=== PATIENT | male | born 1945 | race African-American/Black ===

== ENCOUNTER 2017-03-27 15:46 | Emergency (ER) | payer MEDICARE ==
[~2017-03-27] VITALS: Ht 182.9 cm; Wt 68.0 kg
[2017-03-27 21:10] VITALS: BP 131/69
== END 2017-03-27 23:30 | disposition left against medical advice (07) ==
LOC: ER 15:46
DX: L97.529 Non-pressure chronic ulcer of other part of left foot with unspecified severity (principal)
CPT/HCPCS: 99281

== ENCOUNTER 2020-03-24 17:50 | Inpatient (IN) | payer MEDICARE ==
[~2020-03-24] VITALS: Ht 182.9 cm; Wt 54.0 kg
[2020-03-24] MEDS ORDERED: SODIUM CHLORIDE 0.9% 1,000 ML IV ONE (19:27)
[2020-03-24 19:38] LABS: CLARITY URINE CLEAR (CLEAR); COLOR URINE DARK YELLOW (YELLOW); KETONES URINE TRACE (NEGATIVE); LEUKOCYTE ESTERASE URINE TRACE (NEGATIVE); NITRITE URINE NEGATIVE (NEGATIVE); OCCULT BLOOD URINE NEGATIVE (NEGATIVE); PROTEIN URINE 1+ (NEGATIVE); SPECIFIC GRAVITY URINE 1.022 (1.005-1.030)
[2020-03-24 21:13] LABS: BASOPHILS % 0.4 % (0.0-2.0); LYMPHOCYTES % 7.8 % (20.0-50.0); MEAN CORPUSCULAR HEMOGLOBIN 30.3 pg (28.0-32.0); MEAN CORPUSCULAR VOLUME 96.5 fL (80.0-94.0); MEAN PLATELET VOLUME 7.6 fl (7.4-10.4); MONOCYTES % 7.9 % (2.0-8.0); NEUTROPHILS % 83.9 % (40.0-76.0); PLATELET 359 x1000/uL (130-400); RED BLOOD CELL COUNT 1.79 mill/uL (4.7-6.1); RED CELL DISTRIBUTION WIDTH 15.9 % (11.6-14.6)
[2020-03-24 21:15] LABS: HEMATOCRIT. 17.2 % (42.0-52.0); HEMOGLOBIN. 5.4 g/dL (14.0-18.0)
[2020-03-24 21:16] LABS: CHLORIDE 110 mEq/L (98-107)
[2020-03-24 21:24] LABS: INR 1.1; PROTHROMBIN TIME 11.4 sec (9.6-11.0)
[2020-03-24] MEDS ORDERED: CLONIDINE 0.1MG TABLET PO PRN (23:45)
[2020-03-24] MEDS ORDERED: ACETAMINOPHEN 325MG TABLET PO PRN (23:45)
[2020-03-24] MEDS ORDERED: MAGNESIUM/ALUMINUM HYDROXIDE/SIMETHICONE 30ML UDC PO PRN (23:45)
[2020-03-24] MEDS ORDERED: DOCUSATE SODIUM 100MG CAPSULE PO PRN (23:45)
[2020-03-24] MEDS ORDERED: IPRATROPIUM/ALBUTEROL 0.5-3(2.5)MG/3ML NEB NEB PRN (23:45)
[2020-03-24] MEDS ORDERED: ONDANSETRON HCL 4MG/2ML INJ IV PRN (23:45)
[2020-03-25] VITALS (12 sets, daily range): BP systolic 106–152; BP diastolic 53–81
[2020-03-25 00:11] LABS: CHLORIDE 111 mEq/L (98-107)
[2020-03-25 00:17] LABS: TOTAL IRON BINDING CAPACITY 169 ug/dL (250-450)
[2020-03-25 09:36] LABS: *AMPHETAMINES SCREEN URINE NEGATIVE (NEGATIVE); *BARBITURATES SCREEN URINE NEGATIVE (NEGATIVE); *BENZODIAZEPINES SCREEN URINE NEGATIVE (NEGATIVE); *COCAINE SCREEN URINE NEGATIVE (NEGATIVE); METHADONE URINE SCREEN NEGATIVE (NEGATIVE)
[2020-03-25 09:37] LABS: CANNABINOID URINE SCREEN NEGATIVE (NEGATIVE); OPIATES URINE SCREEN NEGATIVE (NEGATIVE); PHENCYCLIDINE URINE SCREEN NEGATIVE (NEGATIVE)
[2020-03-25] MEDS: PANTOPRAZOLE SODIUM 40 MG/VIAL IV SCH (10:05)
[2020-03-25] MEDS: SODIUM CHLORIDE 0.9% 1,000 ML IV SCH (12:38)
[2020-03-25 17:50] LABS: BASOPHILS % 0.3 % (0.0-2.0); EOSINOPHILS % 0.1 % (0.0-5.0); HEMATOCRIT. 26.6 % (42.0-52.0); HEMOGLOBIN. 8.7 g/dL (14.0-18.0); LYMPHOCYTES % 8.3 % (20.0-50.0); MEAN CORPUSCULAR HEMOGLOBIN 30.4 pg (28.0-32.0); MEAN CORPUSCULAR VOLUME 92.7 fL (80.0-94.0); MEAN PLATELET VOLUME 7.6 fl (7.4-10.4); MONOCYTES % 8.4 % (2.0-8.0); NEUTROPHILS % 82.9 % (40.0-76.0); PLATELET 314 x1000/uL (130-400); RED BLOOD CELL COUNT 2.87 mill/uL (4.7-6.1); RED CELL DISTRIBUTION WIDTH 17.3 % (11.6-14.6)
[2020-03-25 18:08] LABS: HAPTOGLOBIN 98 mg/dL (30-200)
[2020-03-25 18:12] LABS: CREATINE KINASE MB FRACTION 5.7 ng/mL (0.5-3.6)
[2020-03-25 18:28] LABS: FOLIC ACID (FOLATE) SERUM 3.5 ng/mL (>5.38)
[2020-03-26 00:05] VITALS: BP 124/59
[2020-03-26 04:00] VITALS: BP 126/66
[2020-03-26] MEDS: SODIUM CHLORIDE 0.9% 1,000 ML IV SCH ×2 (04:21→17:45)
[2020-03-26] MEDS: HYDROCODONE/ACETAMINOPHEN 5/325MG TABLET PO PRN ×2 (06:39→17:40)
[2020-03-26 07:42] LABS: HEMATOCRIT. 28.3 % (42.0-52.0); HEMOGLOBIN. 9.1 g/dL (14.0-18.0); MEAN CORPUSCULAR HEMOGLOBIN 29.7 pg (28.0-32.0); MEAN CORPUSCULAR VOLUME 92.9 fL (80.0-94.0); MEAN PLATELET VOLUME 7.6 fl (7.4-10.4); PLATELET 314 x1000/uL (130-400); RED BLOOD CELL COUNT 3.05 mill/uL (4.7-6.1); RED CELL DISTRIBUTION WIDTH 17.1 % (11.6-14.6)
[2020-03-26 07:50] LABS: CHLORIDE 111 mEq/L (98-107)
[2020-03-26 08:00] VITALS: BP 109/54
[2020-03-26] MEDS: PANTOPRAZOLE SODIUM 40 MG/VIAL IV SCH ×2 (08:50→17:38)
[2020-03-26 13:00] VITALS: BP 157/72
[2020-03-26 16:00] VITALS: BP 131/50
[2020-03-26] MEDS: FOLIC ACID 1MG TABLET PO SCH (17:38)
[2020-03-26 18:26] LABS: HEMATOCRIT 27.2 % (42.0-52.0); HEMOGLOBIN 8.9 g/dL (14.0-18.0); MEAN CORPUSCULAR HEMOGLOBIN 30.4 pg (28.0-32.0); MEAN CORPUSCULAR VOLUME 92.9 fL (80.0-94.0); PLATELET 335 x1000/uL (130-400); RED BLOOD CELL COUNT 2.93 mill/uL (4.7-6.1); RED CELL DISTRIBUTION WIDTH 17.2 % (11.6-14.6)
[2020-03-26] MEDS ORDERED: CEFTRIAXONE 1 G PREMIX 50 ML IV SCH (18:30)
[2020-03-26 20:46] VITALS: BP 114/53
[2020-03-26 21:19] LABS: TOTAL IRON BINDING CAPACITY 212 ug/dL (250-450)
[2020-03-26 22:08] LABS: NUCLEATED RED BLOOD CELLS 2 /100 WBC; PLATELET ESTIMATE NORMAL
[2020-03-26] MEDS: CEFTRIAXONE 1,000 MG in DEXTROSE 5% WATER 50 ML IV SCH (22:42)
[2020-03-26] MEDS: AZITHROMYCIN 500 MG in DEXT 5% WATER 250 ML IV SCH (22:43)
[2020-03-27 00:05] VITALS: BP 115/57
[2020-03-27 04:48] VITALS: BP 128/62
[2020-03-27] MEDS: SODIUM CHLORIDE 0.9% 1,000 ML IV SCH ×2 (05:49→18:17)
[2020-03-27 05:53] LABS: HEMATOCRIT. 24.9 % (42.0-52.0); MEAN CORPUSCULAR HEMOGLOBIN 30.1 pg (28.0-32.0); MEAN CORPUSCULAR VOLUME 93.6 fL (80.0-94.0); PLATELET 295 x1000/uL (130-400); RED BLOOD CELL COUNT 2.66 mill/uL (4.7-6.1); RED CELL DISTRIBUTION WIDTH 17.2 % (11.6-14.6)
[2020-03-27 07:15] LABS: CHLORIDE 111 mEq/L (98-107)
[2020-03-27] MEDS: INSULIN LISPRO 100 UNITS/ML SUBCUT SCH ×4 (07:50→21:00)
[2020-03-27 08:00] VITALS: BP 116/49
[2020-03-27] MEDS ORDERED: DEXTROSE 50% WATER 50ML SYRINGE IV PRN ×3 (08:00→20:45)
[2020-03-27] MEDS: BLOOD SUGAR DIAGNOSTIC STRIP TEST SCH ×4 (08:00→21:34)
[2020-03-27] MEDS: PANTOPRAZOLE SODIUM 40 MG/VIAL IV SCH ×3 (09:00→18:13)
[2020-03-27] MEDS: FOLIC ACID 1MG TABLET PO SCH (09:04)
[2020-03-27 12:00] VITALS: BP 125/56
[2020-03-27 13:13] LABS: NUCLEATED RED BLOOD CELLS 4 /100 WBC
[2020-03-27 13:14] LABS: PLATELET ESTIMATE NORMAL
[2020-03-27] MEDS: HYDROCODONE/ACETAMINOPHEN 5/325MG TABLET PO PRN ×2 (15:06→21:36)
[2020-03-27] MEDS: IRON SUCROSE COMPLEX 100 MG/5 ML ML IV SCH (15:06)
[2020-03-27 15:53] VITALS: BP 123/51
[2020-03-27 20:34] VITALS: BP 128/60
[2020-03-27] MEDS: GUAIFENESIN 600MG ER TABLET PO SCH (21:34)
[2020-03-27] MEDS: CEFTRIAXONE 1,000 MG in DEXTROSE 5% WATER 50 ML IV SCH (21:34)
[2020-03-27] MEDS: AZITHROMYCIN 500 MG in DEXT 5% WATER 250 ML IV SCH (22:40)
[2020-03-28] VITALS (7 sets, daily range): BP systolic 112–127; BP diastolic 55–86
[2020-03-28] MEDS: HYDROCODONE/ACETAMINOPHEN 5/325MG TABLET PO PRN ×4 (03:00→21:37)
[2020-03-28] MEDS: BLOOD SUGAR DIAGNOSTIC STRIP TEST SCH ×4 (06:51→21:36)
[2020-03-28 07:38] LABS: BASOPHILS % 0.3 % (0.0-2.0); EOSINOPHILS % 0.5 % (0.0-5.0); HEMATOCRIT. 25.7 % (42.0-52.0); HEMOGLOBIN. 8.4 g/dL (14.0-18.0); LYMPHOCYTES % 9.9 % (20.0-50.0); MEAN CORPUSCULAR HEMOGLOBIN 30.8 pg (28.0-32.0); MEAN CORPUSCULAR VOLUME 93.8 fL (80.0-94.0); MEAN PLATELET VOLUME 8.3 fl (7.4-10.4); MONOCYTES % 8.9 % (2.0-8.0); NEUTROPHILS % 80.4 % (40.0-76.0); PLATELET 292 x1000/uL (130-400); RED BLOOD CELL COUNT 2.74 mill/uL (4.7-6.1); RED CELL DISTRIBUTION WIDTH 17.2 % (11.6-14.6)
[2020-03-28] MEDS: INSULIN LISPRO 100 UNITS/ML SUBCUT SCH ×4 (07:50→21:00)
[2020-03-28] MEDS: SODIUM CHLORIDE 0.9% 1,000 ML IV SCH ×2 (08:00→21:38)
[2020-03-28 08:18] LABS: CHLORIDE 110 mEq/L (98-107)
[2020-03-28] MEDS: FOLIC ACID 1MG TABLET PO SCH (08:22)
[2020-03-28] MEDS: GUAIFENESIN 600MG ER TABLET PO SCH ×2 (08:23→21:36)
[2020-03-28] MEDS: IRON SUCROSE COMPLEX 100 MG/5 ML ML IV SCH (08:23)
[2020-03-28] MEDS: PANTOPRAZOLE SODIUM 40 MG/VIAL IV SCH ×2 (08:32→17:11)
[2020-03-28] MEDS: BUDESONIDE 0.5MG/2ML NEB HHN SCH (21:22)
[2020-03-28] MEDS: IPRATROPIUM/ALBUTEROL 0.5-3(2.5)MG/3ML NEB HHN SCH (21:23)
[2020-03-28] MEDS: CEFTRIAXONE 1,000 MG in DEXTROSE 5% WATER 50 ML IV SCH (21:36)
[2020-03-28] MEDS: AZITHROMYCIN 500 MG in DEXT 5% WATER 250 ML IV SCH (21:38)
[2020-03-29 00:19] VITALS: BP 147/72
[2020-03-29] MEDS: IPRATROPIUM/ALBUTEROL 0.5-3(2.5)MG/3ML NEB HHN SCH ×4 (01:04→21:16)
[2020-03-29] MEDS: BUDESONIDE 0.5MG/2ML NEB HHN SCH ×3 (01:04→21:17)
[2020-03-29 04:00] VITALS: BP 133/57
[2020-03-29] MEDS: HYDROCODONE/ACETAMINOPHEN 5/325MG TABLET PO PRN ×3 (05:22→17:23)
[2020-03-29] MEDS: BLOOD SUGAR DIAGNOSTIC STRIP TEST SCH ×4 (06:29→20:55)
[2020-03-29] MEDS: INSULIN LISPRO 100 UNITS/ML SUBCUT SCH ×4 (07:50→20:56)
[2020-03-29 08:07] VITALS: BP 124/55
[2020-03-29] MEDS: FOLIC ACID 1MG TABLET PO SCH (09:13)
[2020-03-29] MEDS: PANTOPRAZOLE SODIUM 40 MG/VIAL IV SCH ×2 (09:13→17:23)
[2020-03-29] MEDS: IRON SUCROSE COMPLEX 100 MG/5 ML ML IV SCH (09:13)
[2020-03-29] MEDS: GUAIFENESIN 600MG ER TABLET PO SCH ×2 (09:13→20:55)
[2020-03-29] MEDS: SODIUM CHLORIDE 0.9% 1,000 ML IV SCH ×2 (10:40→23:22)
[2020-03-29 12:10] VITALS: BP 126/72
[2020-03-29 14:08] LABS: BG CARBOXYHEMOGLOBIN 1.5 % (0.5-1.5); BG DEOXYHEMOGLOBIN 15.4 % (0.0-5.0); BG FRACTION INSPIRED OXYGEN 21; BG HCO3 ACT 20.5 mmol/L (22.0-26.0); BG METHEMOGLOBIN 0.1 % (0.0-1.5); BG OXYGEN SATURATION 84.3 % (92.0-98.5); BG PCO2 30.5 mmHg (35.0-45.0); BG PH 7.445 (7.350-7.450); BG PO2 48.8 mmHg (75.0-100.0); BG SAMPLE SITE RIGHT BRACHIAL; BG TOTAL HEMOGLOBIN 8.4 g/dL (12.0-18.0); BG VENT MODE ROOM AIR
[2020-03-29 16:08] VITALS: BP 154/58
[2020-03-29 20:06] VITALS: BP 121/60
[2020-03-29] MEDS: CEFTRIAXONE 1,000 MG in DEXTROSE 5% WATER 50 ML IV SCH (20:55)
[2020-03-29] MEDS: AZITHROMYCIN 500 MG in DEXT 5% WATER 250 ML IV SCH (20:55)
[2020-03-30 00:49] VITALS: BP 118/60
[2020-03-30] MEDS: IPRATROPIUM/ALBUTEROL 0.5-3(2.5)MG/3ML NEB HHN SCH ×2 (03:15→08:34)
[2020-03-30 04:00] VITALS: BP 122/64
[2020-03-30 06:19] LABS: CHLORIDE 111 mEq/L (98-107); HEMATOCRIT. 21.8 % (42.0-52.0); MEAN CORPUSCULAR HEMOGLOBIN 30.2 pg (28.0-32.0); MEAN CORPUSCULAR VOLUME 95.1 fL (80.0-94.0); MEAN PLATELET VOLUME 7.9 fl (7.4-10.4); PLATELET 296 x1000/uL (130-400); RED BLOOD CELL COUNT 2.29 mill/uL (4.7-6.1); RED CELL DISTRIBUTION WIDTH 17.3 % (11.6-14.6)
[2020-03-30] MEDS ORDERED: LIDOCAINE HCL 5% OINT 35GM/TUBE TOP ONE (06:59)
[2020-03-30] MEDS ORDERED: NORMAL SALINE 0.9% 10 ML SYR ONE (06:59)
[2020-03-30] MEDS ORDERED: LIDOCAINE HCL/PF 1% 10 MG/ML 5ML VIAL ONE (06:59)
[2020-03-30 07:20] LABS: HEMOGLOBIN. 6.9 g/dL (14.0-18.0)
[2020-03-30] MEDS: BLOOD SUGAR DIAGNOSTIC STRIP TEST SCH ×2 (07:20→11:45)
[2020-03-30] MEDS ORDERED: TETRACAINE/BENZOCAINE/BUTAMBEN 20 GM SPRAY MM ONE (07:33)
[2020-03-30] MEDS: INSULIN LISPRO 100 UNITS/ML SUBCUT SCH (07:50)
[2020-03-30 08:00] VITALS: BP 125/63
[2020-03-30 08:15] VITALS: BP 126/63
[2020-03-30] MEDS: BUDESONIDE 0.5MG/2ML NEB HHN SCH (08:34)
[2020-03-30] MEDS: FOLIC ACID 1MG TABLET PO SCH (09:41)
[2020-03-30] MEDS: GUAIFENESIN 600MG ER TABLET PO SCH (09:41)
[2020-03-30] MEDS: PANTOPRAZOLE SODIUM 40 MG/VIAL IV SCH (09:42)
[2020-03-30] MEDS ORDERED: PANT40TA4 MT (09:53)
[2020-03-30] MEDS ORDERED: FOLI-43 PO (09:53)
[2020-03-30] MEDS ORDERED: LEVO500T89 MT (09:53)
[2020-03-30 12:00] VITALS: BP 144/62
[2020-03-30 12:28] LABS: NUCLEATED RED BLOOD CELLS 1 /100 WBC; PLATELET ESTIMATE NORMAL
[2020-04-01 05:12] LABS: HIV SCREEN 4G Non Reactive (Non Reactive)
== END 2020-03-30 13:08 | disposition left against medical advice (07) | DRG 377 ==
LOC: ER 17:50 → EDBEDREQTM 19:37 → 7WST 21:44 → EDBEDREQTM 21:45 → EDBEDREQ 21:45 → EDBEDREQSVC 21:45 → ENRESERV 22:09 → 6WST 03-26 14:06
PROVIDERS: ADMIT Internal Medicine; ATTEND Internal Medicine
PROC: 30233N1 Transfusion of Nonautologous Red Blood Cells into Peripheral Vein, Percutaneous Approach (ICD-10-PCS; principal; 2020-03-25)
DX: K92.2 Gastrointestinal hemorrhage, unspecified (principal); J18.9 Pneumonia, unspecified organism; J96.01 Acute respiratory failure with hypoxia; E43 Unspecified severe protein-calorie malnutrition; G93.41 Metabolic encephalopathy; E87.2 Acidosis; I67.82 Cerebral ischemia; L97.409 Non-pressure chronic ulcer of unspecified heel and midfoot with unspecified severity; M62.82 Rhabdomyolysis; Z68.1 Body mass index [BMI] 19.9 or less, adult; R65.10 Systemic inflammatory response syndrome (SIRS) of non-infectious origin without acute organ dysfunction; D50.9 Iron deficiency anemia, unspecified; E78.5 Hyperlipidemia, unspecified; M10.9 Gout, unspecified; M19.90 Unspecified osteoarthritis, unspecified site; L08.9 Local infection of the skin and subcutaneous tissue, unspecified; S80.821A Blister (nonthermal), right lower leg, initial encounter; E53.8 Deficiency of other specified B group vitamins; I11.0 Hypertensive heart disease with heart failure; E78.00 Pure hypercholesterolemia, unspecified; R80.9 Proteinuria, unspecified; Z53.29 Procedure and treatment not carried out because of patient's decision for other reasons; R79.82 Elevated C-reactive protein (CRP); L97.519 Non-pressure chronic ulcer of other part of right foot with unspecified severity; J44.9 Chronic obstructive pulmonary disease, unspecified; R94.6 Abnormal results of thyroid function studies; R90.82 White matter disease, unspecified; I70.209 Unspecified atherosclerosis of native arteries of extremities, unspecified extremity; Z86.73 Personal history of transient ischemic attack (TIA), and cerebral infarction without residual deficits; Z86.19 Personal history of other infectious and parasitic diseases
CPT/HCPCS: 36415; 36600; 71045; 71250; 73630; 80048; 80053; 80061; 80305; 81003; 82140; 82270; 82375; 82378; 82550; 82553; 82607; 82728; 82746; 82805; 82962; 83010; 83036; 83540; 83550; 83605; 83615; 83735; 83880; 84145; 84443; 84484; 85025; 85027; 85044; 86140; 86300; 86850; 86870; 86900; 86920; 87389; 87635; 92610; 93005; 93306; 93923; 93970; 94640; 97110; 97162; 97166; 97530; 99291; C9113; J0456; J0696; J3490; J7030; J7060; J7626; P9016